=== PATIENT | male | born 1965 | race Caucasian/White ===

== ENCOUNTER 2023-12-15 06:40 | Day surgery (SDC) | payer OTHER ==
[~2023-12-15] VITALS: Ht 175.3 cm; Wt 114.4 kg
[~2023-12-15 06:40] MED LIST: Antivert25 MG PO; Augmentin 875-1 EACH PO; EZET10 PO; LIVALO2 MG PO; LOSARTAN POTAS100 M1 PO; MOBIC15 MG PO; Percocet 5-3251 EACH PO; Zofran Odt4 MG SL
[2023-12-15] MEDS ORDERED: Lactated Ringer's 1,000 ML IV ONE ×2 (07:18→07:46)
[2023-12-15] MEDS ORDERED: propofoL 50 ML IV ONE (07:18)
[2023-12-15 08:38] VITALS: BP 90/80
== END 2023-12-15 08:38 | disposition home or self-care (01) ==
LOC: ORSCSDS 06:40
PROVIDERS: Surgery
PROC: 0DBH8ZX Excision of Cecum, Via Natural or Artificial Opening Endoscopic, Diagnostic (ICD-10-PCS; principal; 2023-12-15 08:00)
DX: Z12.11 Encounter for screening for malignant neoplasm of colon (principal); D12.0 Benign neoplasm of cecum; K57.30 Diverticulosis of large intestine without perforation or abscess without bleeding; Z86.010 Personal history of colon polyps; K21.9 Gastro-esophageal reflux disease without esophagitis; E78.5 Hyperlipidemia, unspecified; I10 Essential (primary) hypertension; D69.6 Thrombocytopenia, unspecified; E88.810 Metabolic syndrome; Z79.899 Other long term (current) drug therapy; Z87.891 Personal history of nicotine dependence
CPT/HCPCS: 88305; J2704; J7120

== ENCOUNTER → 2025-10-11 | Outpatient (CLI) | payer OTHER ==
[2025-10-12 14:56] LABS: Stool Occult Blood Guaiac 1 Neg (Neg)
== END ==
LOC: LAB 14:45 → LAB SHORT 14:45
PROVIDERS: Nurse Practitioner Family
DX: K52.9 Noninfective gastroenteritis and colitis, unspecified (principal); K59.00 Constipation, unspecified; R10.9 Unspecified abdominal pain
CPT/HCPCS: 82272; 87015; 87045; 87046; 87205; 87899